=== PATIENT | female | born 1960 | race Caucasian/White ===

== ENCOUNTER 2019-08-18 07:57 | Outpatient (CLI) | payer OTHER ==
--- NOTE | 2019-08-18 08:37 | MMO ---
Bilateral MAMMO Bilat Diag [facility]. CLINICAL HISTORY: Patient is 59 years old and is seen for diagnostic exam. The patient has no family history of breast cancer. The patient has no personal history of cancer. VIEWS: The views performed were: bilateral craniocaudal with tomosynthesis; bilateral mediolateral oblique with tomosynthesis; and bilateral mediolateral with tomosynthesis. FILMS COMPARED: The present examination has been compared to a prior imaging study performed at [facility] on 08/18/2019. This study has been interpreted with the assistance of computer-aided detection. MAMMOGRAM FINDINGS: There are scattered fibroglandular densities. There are benign appearing calcifications seen in both breasts. NO MAMMOGRAPHIC OR SONOGRAPHIC ABNORMALITIES ARE PRESENT TO CORRELATE WITH THE SITE OF PALPABLE CONCERN. THE PATIENT WILL BE REFERRED BACK TO HER CLINICIAN FOR FURTHER CARE. BIOPSY SHOULD NOT BE PRECLUDED BY THE ABSCENCE OF IMAGING FINDINGS, IN THE SETTING OF CLINICAL CONCERN FOR MALIGNANCY. There are no suspicious masses, suspicious calcifications, or new areas of architectural distortion. IMPRESSION: THERE IS NO MAMMOGRAPHIC EVIDENCE OF MALIGNANCY. NO MAMMOGRAPHIC OR SONOGRAPHIC ABNORMALITIES ARE PRESENT TO CORRELATE WITH THE SITE OF PALPABLE CONCERN. THE PATIENT WILL BE REFERRED BACK TO HER CLINICIAN FOR FURTHER CARE. BIOPSY SHOULD NOT BE PRECLUDED BY THE ABSCENCE OF IMAGING FINDINGS, IN THE SETTING OF CLINICAL CONCERN FOR MALIGNANCY. THE FINDINGS AND RECOMMENDATIONS WERE DISCUSSED WITH THE PATIENT PRIOR TO HER LEAVING THE CENTER. A ROUTINE FOLLOW-UP MAMMOGRAM IN 1 YEAR IS RECOMMENDED. THE RESULTS OF THIS EXAM WERE SENT TO THE PATIENT. ACR BI-RADS Category 2 - Benign finding MAMMOGRAPHY NOTE: 1. A negative mammogram report should not delay a biopsy if a dominant of clinically suspicious mass is present. 2. Approximately 10% to 15% of breast cancers are not detected by mammography. 3. Adenosis and dense breasts may obscure an underlying neoplasm. Reported by: BILL GARCIA MD Electonically Signed: [id number]
--- NOTE | 2019-08-18 09:42 | ULT ---
LEFT BREAST DIAGNOSTIC ULTRASOUND: INDICATION: Palpable abnormality of the left breast 9 o'clock position 8 cm from the nipple. FINDINGS: No suspicious sonographic abnormality is evident within the region of palpable interest. There is ad jacent costochondral junction seen near this region. No suspicious mass is grossly evident involving the left chest wall. IMPRESSION: BIRADS category 2 - benign. No suspicious sonographic abnormality is seen within the palpable region of interest. Please see the full bilateral diagnostic mammographic evaluation from 08/18/2019 for fur ther details.
== END 2019-08-18 07:58 | disposition home or self-care (01) ==
LOC: BICMAMMO 07:57
DX: N64.4 Mastodynia (principal); N63.0 Unspecified lump in unspecified breast
CPT/HCPCS: 77066; G0279

== ENCOUNTER 2019-09-05 10:23 | Outpatient (CLI) | payer OTHER ==
--- NOTE | 2019-09-05 11:24 | CT ---
CT neck soft tissues with contrast: 09/05/2019 HISTORY: 59-year-old female with ICD-10: "M 89.8X1 pain of left clavicle, and R 22.1 neck swelling" FINDINGS: Posterior to the externally marked region, there is asymmetrical mild bony hypertrophy of the head of the left clavicle, which is also positioned slightly more ventral compared to the contralateral right clavicular head. There is overlying mild soft tissue density arising from the left sternoclavic ular joint that also contributes to these mild bulge in the overlying anterior skin surface. No significant fat stranding to indicate edema. No osteolytic, osteoblastic, or permeative lesion of cla vicles or sternal manubrium. The great vessels arising from the aortic arch appear normal. No superior mediastinal or cervical lymphadenopathy. No evidence of apical pulmonary mass or pleural mas s. There is hyperplasia of the lingual tonsil and mild symmetrical prominence of bilateral palatine tonsils. Normal adenoids. Otherwise, the the rest of the pharyngeal mucosal space is unremarkable. Tr achea and bilateral mainstem bronchi are patent and clear. No abnormality identified involving submandibular, parotid, carotid, parapharyngeal, retropharyngeal, perivertebral, carotid, posterior c ervical, or machine cloth examiner, spaces. Several levels of moderate degenerative disc disease in the cervical spine. Several levels of high-grade facet DJD in the cervical spine. IMPRESSION: 1. The palpable lump corresponds to asymmetrical mild degenerative changes at the left sterno clavicu lar joint. 2. No evidence of malignancy. 3. Nonspecific finding of hyperplasia of lingual tonsil and palatine tonsils. 4. Moderate cervical spondylosis.
[2019-09-05] MEDS ORDERED: Iopamidol-370 76% 500 ML 1 ML ONE (15:14)
== END 2019-09-05 10:24 | disposition home or self-care (01) ==
LOC: BICCT 10:23
DX: R22.1 Localized swelling, mass and lump, neck (principal); M25.512 Pain in left shoulder; M19.012 Primary osteoarthritis, left shoulder; J35.1 Hypertrophy of tonsils; M47.812 Spondylosis without myelopathy or radiculopathy, cervical region
CPT/HCPCS: 70491; Q9967